=== PATIENT | female | born 1950 | race Caucasian/White ===

== ENCOUNTER 2016-11-06 11:33 | Outpatient (CLI) | payer MEDICARE, OTHER ==
[2016-11-06 12:10] LABS: BASOPHILS % 0.3 (0.0-1.5); EOSINOPHILS % 0.8 % (0.0-6.8); LYMPHOCYTES # 3.1 # k/uL (0.6-4.0); MEAN CORPUSCULAR HEMOGLOBIN 31.2 pg (28.0-34.0); MONOCYTES # 0.5 # k/uL (0.0-0.9); MONOCYTES % 5.5 % (0.0-11.0); NEUTROPHILS # 5.3 # k/uL (1.4-7.7)
[2016-11-06 12:43] LABS: eGFR (African) > 60; eGFR (Non-African) > 60
--- NOTE | 2016-11-06 13:00 | Diagnostic Imaging Report ---
[facility] [address] [facility].[address] [id number] Report Submission Date: Nov 06, 2016 12:08:25 PM CRAY FISHING HAND Patient Study Name: ASHER GOODWIN Date: Nov 06, 2016 11:46:58 AM CRAY FISHING HAND Modality Type: CR Gender: F Description: ABDOMEN : 50 Institution: [facility] Physician: TENISHA GUDINO 3 views of the abdomen History: PT STATES SHE HAS HAD A COLON INFECTION FOR 2 WEEKS. NO HX OF SURGERY. SHE HAS EXPERIENCED STOMACH CRAMPING CONSTANTLY. (Hx) / ABDOMINAL PAIN Findings: No similar comparison studies Upright radiograph does not demonstrate free intraperitoneal air. Stool noted throughout the colon. Minimal sigmoid colon wall thickening/ collapsed sigmoid colon. No obvious air fluid levels. 7 mm calcific density left ricky- pelvis may represent a phlebolith Multilevel degenerative changes lumbosacral spine Impression: 1.Stool throughout the colon. Nonobstructive bowel gas pattern. Minimal wall thickening of the sigmoid colon/ collapsed sigmoid colon 2. No free intraperitoneal air. Electronically signed on Nov 06, 2016 12:08:25 PM CRAY FISHING HAND by: Bhavna CHAUDHARY
[2016-11-08 08:11] LABS: ADENOVIRUS F 40/41 Not Detected (Not Detected); ASTROVIRUS Not Detected (Not Detected); C. DIFFICILE (TOXIN A/B) Not Detected (Not Detected); CRYPTOSPORIDIUM Not Detected (Not Detected); CYCLOSPORA CAYETANENSIS Not Detected (Not Detected); ENTAMOEBA HISTOLYTICA Not Detected (Not Detected); GIARDIA LAMBLIA Not Detected (Not Detected); ROTAVIRUS A Not Detected (Not Detected); SAPOVIRUS Not Detected (Not Detected); VIBRIO CHOLERAE Not Detected (Not Detected)
== END 2016-11-06 11:34 ==
LOC: LAB 11:33
PROVIDERS: ATTEND Family Medicine
DX: R10.84 Generalized abdominal pain (principal); A09 Infectious gastroenteritis and colitis, unspecified
CPT/HCPCS: 36415; 74020; 80053; 85025; 87507

== ENCOUNTER 2017-08-08 13:41 | Outpatient (CLI) | payer MEDICARE, OTHER ==
--- NOTE | 2017-08-08 14:46 | Diagnostic Imaging Report ---
RASHAD BEST [facility] [address] [facility] [address] [address] Report Submission Date: Aug 08, 2017 2:19:30 PM CDT Patient Study Name: ASHER GOODWIN Date: Aug 08, 2017 1:58:48 PM CDT Modality Type: CR Gender: F Description: CHEST,ABDOMEN : 50 Institution: [facility] Physician: RASHAD BEST Examination: Obstruction series History: Abdominal discomfort Findings: 4 views obtained of the chest and abdomen. Single view of the chest demonstrates a normal cardiac size. No focal infiltrative process. No blunting of the costophrenic margins. No abnormal dilation of the large or small bowel. Air and stool throughout the large bowel. No suspicious calcification projecting over the renal fossa or the lower pelvic region. Pelvic phleboliths. Osseous structures demonstrate degenerative changes. Impression: No acute pulmonary process. No obstruction. No suspicious calcifications by plain film sensitivity. Electronically signed on Aug 08, 2017 2:19:30 PM CDT by: Jatin CHAUDHARY
== END 2017-08-08 13:42 ==
LOC: RAD 13:41
PROVIDERS: ATTEND Family Medicine
DX: R10.30 Lower abdominal pain, unspecified (principal)
CPT/HCPCS: 74022